=== PATIENT | female | born 1975 | race Caucasian/White ===

== ENCOUNTER 2018-05-08 14:59 | Emergency (ER) | payer OTHER ==
[2018-05-08 14:59] VITALS: BMI 30.7
[2018-05-08] MEDS ORDERED: Sodium Chloride 0.9% 1,000 ML IV STA (15:29)
--- NOTE | 2018-05-08 15:36 | ED PDOC ---
Arrival/HPI - General Chief Complaint: Abdominal Pain Time Seen by Provider: 05/08/18 15:12 Historian: Patient - History of Present Illness Narrative History of Present Illness (Text): 05/08/18 15:31 42yo obese female with no pmhx who present with complaint of sharp RUQ pain x 3days. States the pain resolved yesterday and started again today after eating. states pain is worse today. She admits o nausea. Denies vomiting, diarrhea, constipation, melena, hematmesis, urinary symptoms, back pain, chest pain, any other complant. Past Medical History - Provider Review Nursing Documentation Reviewed: Yes - Infectious Disease Hx of Infectious Diseases: None - Tetanus Immunization Tetanus Immunization: Unknown - Past Medical History Past Medical History: No Previous - Cardiac Hx Cardiac Disorders: No - Pulmonary Hx Respiratory Disorders: No - Neurological Hx Neurological Disorder: No - HEENT Hx HEENT Disorder: No - Renal Hx Renal Disorder: No - Endocrine/Metabolic Hx Endocrine Disorders: No - Hematological/Oncological Hx Blood Disorders: No - Integumentary Hx Dermatological Disorder: No - Musculoskeletal/Rheumatological Hx Musculoskeletal Disorders: No - Gastrointestinal Hx Gastrointestinal Disorders: Yes Hx Gastroesophageal Reflux: Yes - Genitourinary/Gynecological Hx Genitourinary Disorders: No - Psychiatric Hx Psychophysiologic Disorder: Yes Hx Depression: Yes Hx Substance Use: No - Surgical History Hx Section: Yes - Anesthesia Hx Anesthesia Reactions: No Hx Malignant Hyperthermia: No - Suicidal Assessment Feels Threatened In Home Enviroment: No Family/Social History - Physician Review Nursing Documentation Reviewed: Yes Family/Social History: Unknown Family HX Smoking Status: Never Smoked Hx Alcohol Use: No Hx Substance Use: No Hx Substance Use Treatment: No Allergies/Home Meds Allergies/Adverse Reactions: Allergies No Known Allergies Allergy (Verified 05/08/18 15:03) Home Medications: Home Meds Medication Instructions Recorded Confirmed Omeprazole [Omeprazole] 40 mg PO DAILY 05/08/18 05/08/18 Review of Systems - Physician Review All systems were reviewed & negative as marked: Yes - Review of Systems Constitutional: Normal Eyes: Normal ENT: Normal Respiratory: Normal Cardiovascular: Normal Gastrointestinal: Abdominal Pain, Nausea. absent: Constipation, Diarrhea, Vomiting, Hematochezia, Hematemesis Genitourinary Female: Normal Musculoskeletal: Normal Skin: Normal Neurological: Normal Endocrine: Normal Hemo/Lymphatic: Normal Psychiatric: Normal Physical Exam Vital Signs Reviewed: Yes Vital Signs Temp Pulse Resp BP Pulse Ox 05/08/18 18:22 97.9 F 65 18 118/70 100 05/08/18 17:05 97.8 F 62 18 117/72 100 05/08/18 15:04 98.1 F 72 16 116/77 99 Temperature: Afebrile Blood Pressure: Normal Pulse: Regular Respiratory Rate: Normal Appearance: Positive for: Well-Appearing, Non-Toxic, Comfortable Pain Distress: None Mental Status: Positive for: Alert and Oriented X 3 - Systems Exam Head: Present: Atraumatic, Normocephalic Pupils: Present: PERRL Extroacular Muscles: Present: EOMI Conjunctiva: Present: Normal Mouth: Present: Moist Mucous Membranes Neck: Present: Normal Range of Motion Respiratory/Chest: Present: Clear to Auscultation, Good Air Exchange. No: Respiratory Distress, Accessory Muscle Use Cardiovascular: Present: Regular Rate and Rhythm, Normal S1, S2. No: Murmurs Abdomen: Present: Tenderness (RUQ), Normal Bowel Sounds, Other (Soft). No: Distention, Peritoneal Signs, Rebound, Guarding, McBurney's Point Tender, Rovsing's Sign Present Back: Present: Normal Inspection Upper Extremity: Present: Normal Inspection. No: Cyanosis, Edema Lower Extremity: Present: Normal Inspection. No: Edema Neurological: Present: GCS=15, CN II-XII Intact, Speech Normal Skin: Present: Warm, Dry, Normal Color. No: Rashes Psychiatric: Present: Alert, Oriented x 3, Normal Insight, Normal Concentration Medical Decision Making ED Course and Treatment: 05/09/18 01:02 Pt presented for stated history. Lab was unremarkable with exception of mild elevation of Lipase. PT was hydrated and her pain controlled in ED with medication. On re evaluation she states that her pain resolved, smiling. All result was DW the pt. she was given a copy of the US and Lab for her PMD. Rx of Tramadol and pepcid was given for pain. She was advised TRT ED for any new or worsening symptoms. - Lab Interpretations Lab Results: 05/08/18 16:20 05/08/18 16:20 Lab Results 05/08/18 16:20: Sodium 142, Potassium 3.8, Chloride 104, Carbon Dioxide 26, Anion Gap 16, BUN 15, Creatinine 0.5 L, Est GFR ( Amer) > 60, Est GFR ( Non-Af Amer) > 60, Random Glucose 84, Calcium 9.0, Magnesium 1.9, Total Bilirubin 0.6, AST 37 H, ALT 32, Alkaline Phosphatase 82, Total Protein 7.8, Albumin 4.2, Globulin 3.6, Albumin/Globulin Ratio 1.2, Lipase 537 H 05/08/18 16:20: Urine Color Yellow, Urine Appearance Clear, Urine pH 6.0, Ur Specific [place] 1.025, Urine Protein Negative, Urine Glucose (UA) Negative, Urine Ketones Negative, Urine Blood Negative, Urine Nitrate Negative, Urine Bilirubin Negative, Urine Urobilinogen 0.2, Ur Leukocyte Esterase Trace H, Urine RBC Negative, Urine WBC 0 - 2, Ur Epithelial Cells 1 - 3, Urine Bacteria Few 05/08/18 16:20: PT 11.8, INR 1.03, APTT 28.6 05/08/18 16:20: WBC 5.7, RBC 4.28, Hgb 11.1 L, Hct 33.4 L, MCV 78.0 L, MCH 25.9 , MCHC 33.2, RDW 14.1, Plt Count 177, MPV 11.5 H, Gran % 62.8, Lymph % (Auto) 32.2, Braxton % (Auto) 3.2, Eos % (Auto) 0.9 L, Baso % (Auto) 0.9, Gran # 3.56, Lymph # (Auto) 1.8, [place] # (Auto) 0.2, Eos # (Auto) 0.1, Baso # (Auto) 0.05 - RAD Interpretation Radiology Orders: 05/08/18 15:30 GALLBLADDER & PANCREAS [US] Stat - Medication Orders Current Medication Orders: Discontinued Medications Famotidine (Pepcid) 20 mg IVP STAT STA Stop: 05/08/18 15:30 Last Admin: 05/08/18 16:21 Dose: 20 mg IVP Administration Document 05/08/18 16:21 JESUS (Rec: 05/08/18 16:22 JESUS [id number]) Charges for Administration # of IVP Administrations 1 Sodium Chloride (Sodium Chloride 0.9%) 1,000 mls @ 1,000 mls/hr IV .Q1H STA Stop: 07/25/18 16:28 Last Admin: 05/08/18 16:22 Dose: 1,000 mls/hr eMAR Start Stop Document 05/08/18 16:22 LA (Rec: 05/08/18 16:22 LA [id number]) Intravenous Solution Start Date 05/08/18 Start Time 16:22 End Date 05/08/18 End time 17:22 Total Infusion Time 60 Ketorolac Tromethamine (Toradol) 30 mg IVP STAT STA Stop: 05/08/18 16:59 Last Admin: 05/08/18 17:13 Dose: 30 mg MAR Pain Assessment Document 05/08/18 17:13 LA (Rec: 05/08/18 17:14 LA [id number]) Pain Reassessment Is this a pain reassessment? No Sleep Is patient sleeping during reassessment? No Presence of Pain Presence of Pain Yes Pain Scale Used Pain Scale Used Numeric Location Left, Right or Bilateral Right Upper or Lower Upper Pain Location Body Site Abdomen Description Description Cramping Intensity of Pain at present 5 Pain Behavior Guarding IVP Administration Document 05/08/18 17:13 LA (Rec: 05/08/18 17:14 LA [id number]) Charges for Administration # of IVP Administrations 1 Ondansetron HCl (Zofran Inj) 4 mg IVP STAT STA Stop: 05/08/18 15:30 Last Admin: 05/08/18 16:21 Dose: 4 mg IVP Administration Document 05/08/18 16:21 LA (Rec: 05/08/18 16:21 LA [id number]) Charges for Administration # of IVP Administrations 1 Disposition/Present on Arrival - Present on Arrival Any Indicators Present on Arrival: No History of DVT/PE: No History of Uncontrolled Diabetes: No Urinary Catheter: No History of Decub. Ulcer: No History Surgical Site Infection Following: None - Disposition Have Diagnosis and Disposition been Completed?: Yes Diagnosis: Abdominal pain Disposition: HOME/ ROUTINE Disposition Time: 17:55 Patient Plan: Discharge Condition: STABLE Discharge Instructions (ExitCare): Acute Abdomen (Belly Pain), Adult (DC) Additional Instructions: Follow up with your Doctor/Surgeon Return to ED for any new or worsening symptoms Prescriptions: Famotidine [Pepcid] 40 mg PO DAILY #10 tab traMADol [Ultram] 50 mg PO TID #7 tab Referrals: Toño Penny MD [Primary Care Provider] - Follow up with primary Julito Lujan MD [Staff Provider] - Follow up with primary Forms: [employer]meg (Libyan), WORK NOTE
--- NOTE | 2018-05-08 16:20 | US ---
Date of service: 05/08/2018 HISTORY: RUQ pain COMPARISON: None. TECHNIQUE: Sonographic evaluation of the right upper quadrant of the abdomen. FINDINGS: LIVER: Enlarged, measuring 17.8 cm in length. Increased echogenicity of the liver parenchyma. No mass. No intrahepatic bile duct dilatation. GALLBLADDER: 8 mm gallbladder polyp versus non shadowing gallstone versus tumefactive sludge. Sonographic Molina's sign was not elicited. COMMON BILE DUCT: Measures 4 mm. No stones. No dilatation. PANCREAS: Unremarkable as visualized. No mass. No ductal dilatation. RIGHT KIDNEY: Measures 9.8 x 4.8 x 4.2 cm in length. Normal echogenicity. No calculus, mass, or hydronephrosis. AORTA: No aneurysmal dilatation. IVC: Unremarkable. OTHER FINDINGS: None . IMPRESSION: Hepatomegaly with steatosis. 8 mm gallbladder polyp versus non shadowing gallstone versus tumefactive sludge. No sonographic evidence of acute cholecystitis.
[2018-05-08 16:53] LABS: BASO # 0.05 K/mm3 (0.0-2.0); BASO % 0.9 % (0.0-3.0); EOS # 0.1 (0.0-0.7); EOS % 0.9 % (1.5-5.0); GRAN # 3.56 (1.4-6.5); GRAN % 62.8 % (50.0-68.0); HEMOGLOBIN 11.1 g/dL (12.0-16.0); LYMPH # 1.8 (1.2-3.4); LYMPH % 32.2 % (22.0-35.0); MEAN CORPUSCULAR HEMOGLOBIN 25.9 pg (25.0-35.0); MEAN CORPUSCULAR HGB CONC 33.2 g/dl (31.0-37.0); MEAN PLATELET VOLUME 11.5 fl (7.0-11.0); MONO # 0.2 (0.1-0.6); MONO % 3.2 % (1.0-6.0); RBC 4.28 10^6/uL (3.5-6.1); RED CELL DISTRIBUTION WIDTH 14.1 % (11.5-14.5); WHITE BLOOD COUNT 5.7 10^3/ul (4.5-11.0)
[2018-05-08 16:55] LABS: URINE BILIRUBIN NEGATIVE (NEGATIVE); URINE BLOOD NEGATIVE (NEGATIVE); URINE GLUCOSE (UA) NEGATIVE (NEGATIVE); URINE LEUKOCYTE ESTERASE TRACE Leu/uL (NEGATIVE); URINE PROTEIN NEGATIVE mg/dL (<30 mg/dL); URINE UROBILINOGEN 0.2 E.U./dL (<1 E.U./dL)
[2018-05-08 16:56] LABS: URINE APPEARANCE CLEAR (CLEAR); URINE COLOR YELLOW (YELLOW)
[2018-05-08 17:04] LABS: URINE RBC NEGATIVE /hpf (0-2)
[2018-05-08 17:05] LABS: INR 1.03 (0.93-1.08); PARTIAL THROMBOPLASTIN TIME 28.6 Seconds (25.1-36.5); PROTHROMBIN TIME 11.8 SECONDS (9.4-12.5); URINE BACTERIA FEW (NEG); URINE WBC 0 - 2 /hpf (0-6)
[2018-05-08 17:06] VITALS: RESP 18; O2SAT 100
[2018-05-08 17:15] LABS: ALB/GLOB RATIO 1.2 (1.1-1.8); ALBUMIN 4.2 g/dL (3.0-4.8); ALT/SGPT 32 U/L (7-56); AST/SGOT 37 U/L (14-36); BLOOD UREA NITROGEN 15 mg/dL (7-21); GFR AFRICAN-AMERICAN > 60; GFR NON-AFRICAN AMERICAN > 60
[2018-05-08 17:59] LABS: LIPASE 537 U/L (23-300)
[2018-05-08 18:24] VITALS: BP 118/70; PULSE 65; TEMP 97.9
== END 2018-05-08 18:22 | disposition home or self-care (01) ==
LOC: ED 14:59
DX: R10.11 Right upper quadrant pain (principal)
CPT/HCPCS: 76705; 80053; 81001; 83690; 83735; 85025; 85610; 85730; 87086; 96361; 96374; 96375; 99284; J1885; J2405; J7030